=== PATIENT | female | born 1940 | race Caucasian/White ===

== ENCOUNTER 2017-05-23 12:45 | Inpatient (IN) ==
[2017-05-23] MEDS ORDERED: MORPHINE 2 MG/1 ML SYRINGE IV STA (14:19)
[2017-05-23] MEDS ORDERED: NITROGLYCERIN 2% OINT 1 INCH/GM PACK TOP STA (14:19)
[2017-05-23] MEDS ORDERED: SODIUM CHLORIDE 0.9% 500 ML IV STA (14:19)
[2017-05-23] MEDS ORDERED: ASPIRIN 325 MG TABLET PO STA (14:19)
[2017-05-23] MEDS ORDERED: ONDANSETRON 4 MG/2 ML VIAL IV STA (14:19)
[2017-05-23] MEDS ORDERED: NITROGLYCERIN 2% OINT 1 INCH/GM PACK TOP ONE (14:32)
[2017-05-23] MEDS ORDERED: ONDANSETRON 4 MG/2 ML VIAL ONE (14:32)
[2017-05-23] MEDS ORDERED: ASPIRIN 325 MG TABLET ONE (14:32)
[2017-05-23] MEDS ORDERED: MORPHINE 2 MG/1 ML SYRINGE ONE (14:32)
[2017-05-23 14:58] LABS: Basophils % 0.6 % (0.0-0.8); Eosinophils % 0.6 % (0.00-10.9); Hemoglobin 12.3 GM/DL (12.0-16.0); Immature Granulocytes % 2.7 %; Immature Granulocytes Absolute 0.14 #; Lymphocytes # 0.9 10*3/uL (1.4-4.0); Lymphocytes % 16.5 % (21.3-54.2); Mean Corpuscular HGB Conc 31.5 GM/DL (32-36); Mean Corpuscular Hemoglobin 29 PG (27-34); Mean Corpuscular Volume 91.8 FL (87-102); Monocytes # 0.2 10*3/uL (0.11-0.8); Monocytes % 4.3 % (1.7-12.7); Neutrophils # 3.9 10*3/uL (1.4-7.4); Neutrophils % 75.3 % (38.7-73.9); Platelet Count 60 T/CUMM (130-400); Red Blood Count 4.25 MC/CUMM (3.8-5.5); Red Cell Distribution Width 18.4 % (9.3-17.3); White Blood Count 5.2 T/CUMM (4-12)
[2017-05-23 15:03] LABS: INR 0.9; PT Patient Result 9.6 SECS
[2017-05-23 15:07] LABS: Albumin 3.7 G/DL (3.4-5.0); Bilirubin,Total 0.9 MG/DL (0.2-1.0); Calcium 9.9 MG/DL (8.5-10.1); Magnesium 1.8 MG/DL (1.8-2.4); Osmolality,Calculated 283.3 MOS/KG (273-304); Potassium 4.1 MMOL/L (3.5-5.1); Total Protein 8.6 G/DL (6.4-8.3)
[2017-05-23 15:16] LABS: Anisocytosis 1+; Poikilocytosis 2+
[2017-05-23] MEDS ORDERED: GLUCAGON 1 MG VIAL IM PRN (19:57)
[2017-05-23] MEDS ORDERED: NITROGLYCERIN SL 0.4 MG TABLET SL PRN (19:57)
[2017-05-23] MEDS ORDERED: MORPHINE 2 MG/1 ML SYRINGE IV PRN (19:57)
[2017-05-23] MEDS ORDERED: CETIRIZINE 10 MG TABLET PO PRN (19:57)
[2017-05-23] MEDS ORDERED: ONDANSETRON 4 MG/2 ML VIAL IV PRN (19:57)
[2017-05-23] MEDS ORDERED: ACETAMINOPHEN 500 MG TABLET PO PRN (19:57)
[2017-05-23] MEDS ORDERED: DEXTROSE 50% 25 GM/50 ML VIAL IV PRN (19:57)
[2017-05-23] MEDS: DOCUSATE SODIUM 100 MG CAPSULE PO SCH (21:44)
[2017-05-23] MEDS: PRAVASTATIN 40 MG TABLET PO SCH (21:44)
[2017-05-23] MEDS: INSULIN REGULAR 100 UNIT/ML SUBCUT SCH (21:44)
[2017-05-23] MEDS: SODIUM CHLORIDE 0.9% 1,000 ML IV SCH (21:54)
[2017-05-23] MEDS: GABAPENTIN 100 MG CAPSULE PO SCH (21:58)
[2017-05-24 05:40] LABS: Basophils % 0.6 % (0.0-0.8); Eosinophils % 0.8 % (0.00-10.9); Hematocrit 30.3 VOL% (35.7-47.0); Hemoglobin 9.3 GM/DL (12.0-16.0); Immature Granulocytes % 2.9 %; Immature Granulocytes Absolute 0.15 #; Lymphocytes # 1.7 10*3/uL (1.4-4.0); Lymphocytes % 33.9 % (21.3-54.2); Mean Corpuscular HGB Conc 30.7 GM/DL (32-36); Mean Corpuscular Hemoglobin 29 PG (27-34); Mean Corpuscular Volume 93.5 FL (87-102); Monocytes # 0.3 10*3/uL (0.11-0.8); Monocytes % 6.1 % (1.7-12.7); Neutrophils # 2.8 10*3/uL (1.4-7.4); Neutrophils % 55.7 % (38.7-73.9); Platelet Count 51 T/CUMM (130-400); Red Blood Count 3.24 MC/CUMM (3.8-5.5); Red Cell Distribution Width 18.2 % (9.3-17.3); White Blood Count 5.1 T/CUMM (4-12)
[2017-05-24 06:12] LABS: Albumin 2.8 G/DL (3.4-5.0); Bilirubin,Total 0.4 MG/DL (0.2-1.0); Calcium 8.8 MG/DL (8.5-10.1); Magnesium 2.1 MG/DL (1.8-2.4); Osmolality,Calculated 288.7 MOS/KG (273-304); Potassium 5.2 MMOL/L (3.5-5.1); Risk Ratio 3.66; Total Protein 6.2 G/DL (6.4-8.3); VLDL CHOLESTEROL 24.4 MG/DL
[2017-05-24 06:41] LABS: Hypochromasia 1+; Macrocytosis 1+; Target Cells Slight
[2017-05-24] MEDS: INSULIN REGULAR 100 UNIT/ML SUBCUT SCH ×4 (07:57→21:43)
[2017-05-24] MEDS ORDERED: NON-FORMULARY MEDICATION (Esomeprazole Magnesium [Esomeprazole] 20 MG) PO SCH (09:00)
[2017-05-24] MEDS: PANTOPRAZOLE 40 MG TABLET PO SCH (09:51)
[2017-05-24] MEDS: metFORMIN 500 MG TABLET PO SCH ×2 (09:51→16:32)
[2017-05-24] MEDS: DOCUSATE SODIUM 100 MG CAPSULE PO SCH ×2 (09:51→21:43)
[2017-05-24] MEDS: ACETAMINOPHEN 325 MG TABLET PO PRN ×2 (09:52→19:44)
[2017-05-24] MEDS: LOSARTAN 25 MG TABLET PO SCH (09:52)
[2017-05-24 11:00] LABS: Apearance,Urine CLEAR (Clear); Bilirubin,Urine Negative (Negative); Blood, Urine Negative (Negative); Glucose,Urine (UA) Negative (Negative); Ketones,Urine Negative (Negative); Nitrite,Urine Negative (Negative); Protein,Urine Negative; RBC,Urine <1 /HPF (0-4); Squamous Epithelial Cell,Urine Occasional /HPF (0-10); Urine Color Straw (Yellow); Urine Specific Gravity 1.006 (1.001-1.035); Urine Urobilinogen < 2.0 EU/DL (0.2-1.0); WBC,Urine <1 /HPF (0-6)
[2017-05-24] MEDS ORDERED: oxyCODONE IR 5 MG TABLET PO PRN (12:24)
[2017-05-24] MEDS ORDERED: OLANZapine 5 MG TABLET PO PRN (12:25)
[2017-05-24] MEDS ORDERED: methylPREDNISolone 4 MG TABLET PO SCH (12:30)
[2017-05-24] MEDS: SODIUM CHLORIDE 0.9% 1,000 ML IV SCH (13:23)
[2017-05-24] MEDS: ISOSORBIDE MONONITRATE 30 MG TABLET PO SCH (16:57)
[2017-05-24] MEDS: ASPIRIN EC 81 MG TABLET PO SCH (16:58)
[2017-05-24] MEDS: METOPROLOL TARTRATE 25 MG TABLET PO SCH (21:42)
[2017-05-24] MEDS: methylPREDNISolone 4 MG TABLET PO SCH (21:42)
[2017-05-24] MEDS: PRAVASTATIN 40 MG TABLET PO SCH (21:43)
[2017-05-24] MEDS: GABAPENTIN 100 MG CAPSULE PO SCH (21:43)
[2017-05-25 04:19] LABS: Troponin I Only 0.033 NG/ML (0.00-0.045)
[2017-05-25] MEDS: INSULIN REGULAR 100 UNIT/ML SUBCUT SCH ×4 (08:52→21:14)
[2017-05-25] MEDS: ACETAMINOPHEN 325 MG TABLET PO PRN ×2 (08:53→21:13)
[2017-05-25] MEDS: DOCUSATE SODIUM 100 MG CAPSULE PO SCH ×2 (08:53→21:14)
[2017-05-25] MEDS: metFORMIN 500 MG TABLET PO SCH ×2 (08:53→16:13)
[2017-05-25] MEDS: PANTOPRAZOLE 40 MG TABLET PO SCH (08:53)
[2017-05-25] MEDS: LOSARTAN 25 MG TABLET PO SCH (08:54)
[2017-05-25] MEDS: ISOSORBIDE MONONITRATE 30 MG TABLET PO SCH (08:54)
[2017-05-25] MEDS: METOPROLOL TARTRATE 25 MG TABLET PO SCH ×2 (08:54→21:14)
[2017-05-25] MEDS: ASPIRIN EC 81 MG TABLET PO SCH (10:46)
[2017-05-25] MEDS: GABAPENTIN 100 MG CAPSULE PO SCH (21:13)
[2017-05-25] MEDS: methylPREDNISolone 4 MG TABLET PO SCH (21:14)
[2017-05-25] MEDS: PRAVASTATIN 40 MG TABLET PO SCH (21:14)
[2017-05-26 07:32] VITALS: BP 148/67
[2017-05-26 07:46] LABS: Basophils % 0.6 % (0.0-0.8); Eosinophils % 0.4 % (0.00-10.9); Hemoglobin 9.8 GM/DL (12.0-16.0); Immature Granulocytes % 3.7 %; Immature Granulocytes Absolute 0.18 #; Lymphocytes % 19.5 % (21.3-54.2); Mean Corpuscular HGB Conc 31.6 GM/DL (32-36); Mean Corpuscular Hemoglobin 29 PG (27-34); Mean Corpuscular Volume 90.1 FL (87-102); Monocytes # 0.2 10*3/uL (0.11-0.8); Monocytes % 3.7 % (1.7-12.7); Neutrophils # 3.6 10*3/uL (1.4-7.4); Neutrophils % 72.1 % (38.7-73.9); Red Blood Count 3.44 MC/CUMM (3.8-5.5); Red Cell Distribution Width 17.9 % (9.3-17.3); White Blood Count 4.9 T/CUMM (4-12)
[2017-05-26] MEDS: INSULIN REGULAR 100 UNIT/ML SUBCUT SCH (07:48)
[2017-05-26 07:49] LABS: Platelet Count 50 T/CUMM (130-400)
[2017-05-26 08:05] LABS: Giant Platelets Few; Hypochromasia 1+; Microcytosis Slight; Ovalocytes Slight; Platelet Estimate Decreased
[2017-05-26 08:09] LABS: Calcium 8.6 MG/DL (8.5-10.1); Magnesium 1.8 MG/DL (1.8-2.4); Osmolality,Calculated 284.1 MOS/KG (273-304); Potassium 4.4 MMOL/L (3.5-5.1)
[2017-05-26] MEDS: LOSARTAN 25 MG TABLET PO SCH (08:18)
[2017-05-26] MEDS: metFORMIN 500 MG TABLET PO SCH (08:18)
[2017-05-26] MEDS: METOPROLOL TARTRATE 25 MG TABLET PO SCH (08:18)
[2017-05-26] MEDS: PANTOPRAZOLE 40 MG TABLET PO SCH (08:18)
[2017-05-26] MEDS: ISOSORBIDE MONONITRATE 30 MG TABLET PO SCH (08:19)
[2017-05-26] MEDS: DOCUSATE SODIUM 100 MG CAPSULE PO SCH (08:19)
[2017-05-26] MEDS: ACETAMINOPHEN 325 MG TABLET PO PRN (08:19)
== END 2017-05-26 10:38 | disposition home or self-care (01) | DRG 552 ==
LOC: N.ED 12:45 → N.EDINP 17:06 → N.TELEN 19:37
PROVIDERS: ADMIT Internal Medicine; ATTEND Internal Medicine

== ENCOUNTER 2018-04-06 02:43 | Inpatient (IN) ==
[2018-04-06] MEDS ORDERED: ACETAMINOPHEN 500 MG TABLET PO STA (03:21)
[2018-04-06] MEDS ORDERED: SODIUM CHLORIDE 0.9% 1,000 ML IV STA (03:21)
[2018-04-06 03:29] LABS: Basophils % 1.4 % (0.0-0.8); Eosinophils % 1.1 % (0.00-10.9); Hematocrit 39.5 VOL% (35.7-47.0); Hemoglobin 12.8 GM/DL (12.0-16.0); Immature Granulocytes % 13.6 %; Immature Granulocytes Absolute 0.38 #; Lymphocytes # 0.9 10*3/uL (1.4-4.0); Lymphocytes % 30.7 % (21.3-54.2); Mean Corpuscular HGB Conc 32.4 GM/DL (32-36); Mean Corpuscular Hemoglobin 31 PG (27-34); Mean Corpuscular Volume 94.5 FL (87-102); Monocytes # 0.1 10*3/uL (0.11-0.8); Monocytes % 3.2 % (1.7-12.7); NRBC # 0.02 10*3/uL; Neutrophils # 1.4 10*3/uL (1.4-7.4); Platelet Count 45 T/CUMM (130-400); Red Blood Count 4.18 MC/CUMM (3.8-5.5); White Blood Count 2.8 T/CUMM (4-12)
[2018-04-06 03:41] LABS: Apearance,Urine CLEAR (Clear); Bacteria,Urine Occasional /HPF (Few); Bilirubin,Urine Negative (Negative); Blood, Urine Negative (Negative); Glucose,Urine (UA) Negative (Negative); Ketones,Urine Negative (Negative); Mucus,Urine Occasional /LPF (Occasional); Nitrite,Urine Negative (Negative); Protein,Urine Negative; RBC,Urine 2 /HPF (0-4); Squamous Epithelial Cell,Urine Occasional /HPF (0-10); Urine Color Yellow (Yellow); Urine Specific Gravity 1.018 (1.001-1.035); WBC,Urine 11 /HPF (0-6)
[2018-04-06 04:55] LABS: Lactic Acid 1.7 MMOL/L (0.4-2.0)
[2018-04-06] MEDS ORDERED: CEFEPIME 1,000 MG in SODIUM CHLORIDE 0.9% 100 ML IV STA (04:55)
[2018-04-06] MEDS ORDERED: VANCOMYCIN INJ 1,000 MG in SODIUM CHLORIDE 0.9% 250 ML IV STA (04:56)
[2018-04-06 04:59] LABS: Sedimentation Rate-Westergren 42 MM/HR (0-30)
[2018-04-06] MEDS ORDERED: ALPRAZolam 0.25 MG TABLET PO PRN (05:01)
[2018-04-06] MEDS ORDERED: chlorproMAZINE INJ 50 MG in SODIUM CHLORIDE 0.9% 100 ML IV PRN (05:01)
[2018-04-06] MEDS ORDERED: chlorproMAZINE INJ 25 MG in SODIUM CHLORIDE 0.9% 100 ML IV PRN (05:01)
[2018-04-06] MEDS ORDERED: chlorproMAZINE 25 MG TABLET PO PRN (05:01)
[2018-04-06] MEDS ORDERED: LACTULOSE 20 GM/30 ML UDCUP PO PRN (05:01)
[2018-04-06] MEDS ORDERED: MYLANTA/LIDO VISC 2:1 300 ML BOTTLE SWISH/SPIT PRN (05:01)
[2018-04-06] MEDS ORDERED: LOPERAMIDE 2 MG CAPSULE PO PRN ×3 (05:01→17:29)
[2018-04-06] MEDS ORDERED: traMADol 50 MG TABLET PO PRN ×2 (05:01→17:29)
[2018-04-06] MEDS ORDERED: MYLANTA/LIDO VISC 2:1 300 ML BOTTLE SWISH/SWAL PRN (05:01)
[2018-04-06] MEDS ORDERED: MAGNESIUM HYDROXIDE SUSP 30 ML UDCUP PO PRN (05:01)
[2018-04-06] MEDS ORDERED: ALUMINUM/MAGNES/SIMETH MAX STR 30 ML UDCUP PO PRN (05:01)
[2018-04-06] MEDS ORDERED: BENZTROPINE 2 MG/2 ML AMP IV PRN (05:01)
[2018-04-06] MEDS ORDERED: diphenhydrAMINE CAP 25 MG CAPSULE PO PRN (05:01)
[2018-04-06 05:02] LABS: Alanine Aminotransferase 32 U/L (13-56); Albumin 2.7 G/DL (3.4-5.0); Alkaline Phosphatase < 10 U/L (45-117); Aspartate Amino Transferase 44 U/L (0-37); Blood Urea Nitrogen 17 MG/DL (7-18); Glucose 123 MG/DL (74-106); Osmolality,Calculated 279.5 MOS/KG (273-304); Potassium 4.9 MMOL/L (3.5-5.1); Sodium 139 MMOL/L (136-145)
[2018-04-06 05:23] LABS: Lymphocytes 39 % (20-55); Macrocytosis 1+; Platelet Estimate Decreased; Polychromasia 1+; Segmented Neutrophils 57 % (50-85); Total Cells Counted 100
[2018-04-06] MEDS: DEXTROSE 5% NACL 0.9% 1,000 ML IV SCH ×2 (06:35→18:23)
[2018-04-06] MEDS: ACETAMINOPHEN 325 MG TABLET PO PRN (10:34)
[2018-04-06] MEDS ORDERED: methylPREDNISolone SOD SUC 125 MG/2 ML VIAL ONE (11:19)
[2018-04-06] MEDS: CEFEPIME 2,000 MG in SYRINGE 1 EACH IV SCH ×2 (12:05→21:23)
[2018-04-06] MEDS: FILGRASTIM-SNDZ 300 MCG/0.5 ML SYRINGE SUBCUT SCH (14:41)
[2018-04-06] MEDS ORDERED: NITROGLYCERIN SL 0.4 MG TABLET SL PRN (17:29)
[2018-04-06] MEDS: ACETAMINOPHEN 500 MG TABLET PO PRN (18:14)
[2018-04-06] MEDS: ONDANSETRON 4 MG/2 ML VIAL IV PRN (20:46)
[2018-04-06] MEDS: SODIUM CHLORIDE 0.9% 1,000 ML IV SCH (21:20)
[2018-04-06] MEDS: metFORMIN 500 MG TABLET PO SCH (21:22)
[2018-04-06] MEDS: GABAPENTIN 100 MG CAPSULE PO SCH (21:22)
[2018-04-06] MEDS: METOPROLOL TARTRATE 25 MG TABLET PO SCH (21:22)
[2018-04-06] MEDS: PRAVASTATIN 40 MG TABLET PO SCH (21:22)
[2018-04-07] MEDS: CEFEPIME 2,000 MG in SYRINGE 1 EACH IV SCH ×3 (03:55→20:23)
[2018-04-07] MEDS ORDERED: CEFEPIME 1,000 MG in SYRINGE 1 EACH IV SCH (05:00)
[2018-04-07] MEDS: VANCOMYCIN INJ 750 MG in SODIUM CHLORIDE 0.9% 250 ML IV SCH (05:33)
[2018-04-07 05:45] LABS: Basophils % 1.1 % (0.0-0.8); Eosinophils % 1.1 % (0.00-10.9); Hematocrit 35.9 VOL% (35.7-47.0); Hemoglobin 11.4 GM/DL (12.0-16.0); Immature Granulocytes % 10.1 %; Immature Granulocytes Absolute 0.37 #; Lymphocytes # 0.9 10*3/uL (1.4-4.0); Lymphocytes % 23.5 % (21.3-54.2); Mean Corpuscular HGB Conc 31.8 GM/DL (32-36); Mean Corpuscular Hemoglobin 31 PG (27-34); Mean Corpuscular Volume 96.2 FL (87-102); Monocytes # 0.1 10*3/uL (0.11-0.8); Neutrophils # 2.2 10*3/uL (1.4-7.4); Neutrophils % 61.2 % (38.7-73.9); Red Blood Count 3.73 MC/CUMM (3.8-5.5); Red Cell Distribution Width 22.6 % (9.3-17.3); White Blood Count 3.7 T/CUMM (4-12)
[2018-04-07 05:52] LABS: Platelet Count 20 T/CUMM (130-400)
[2018-04-07 06:04] LABS: Calcium 9.1 MG/DL (8.5-10.1); Osmolality,Calculated 288.6 MOS/KG (273-304)
[2018-04-07 06:24] LABS: Band Neutrophils 9 % (0-10); Eosinophils 1 % (0-10); Lymphocytes 35 % (20-55); Myelocytes 1 %; Segmented Neutrophils 46 % (50-85); Total Cells Counted 100
[2018-04-07 06:25] LABS: Anisocytosis 1+
[2018-04-07 06:26] LABS: Macrocytosis 1+
[2018-04-07 06:27] LABS: Acanthocytes 1+; Target Cells Few
[2018-04-07 06:28] LABS: Ovalocytes Few; Platelet Estimate Decreased
[2018-04-07] MEDS ORDERED: metFORMIN 500 MG TABLET PO SCH (08:00)
[2018-04-07] MEDS: metFORMIN 500 MG TABLET PO SCH ×2 (09:46→18:21)
[2018-04-07] MEDS: CYANOCOBALAMIN 500 MCG TABLET PO SCH (09:46)
[2018-04-07] MEDS: HYDROXYUREA 500 MG CAPSULE PO SCH (09:46)
[2018-04-07] MEDS: LOSARTAN 25 MG TABLET PO SCH (09:48)
[2018-04-07] MEDS: GABAPENTIN 100 MG CAPSULE PO SCH ×2 (09:48→20:23)
[2018-04-07] MEDS: ISOSORBIDE MONONITRATE 30 MG TABLET PO SCH (09:48)
[2018-04-07] MEDS: METOPROLOL TARTRATE 25 MG TABLET PO SCH ×2 (09:48→20:23)
[2018-04-07] MEDS: FILGRASTIM-SNDZ 300 MCG/0.5 ML SYRINGE SUBCUT SCH (09:50)
[2018-04-07] MEDS: ONDANSETRON 4 MG/2 ML VIAL IV PRN (11:15)
[2018-04-07] MEDS: ACETAMINOPHEN 325 MG TABLET PO PRN (16:10)
[2018-04-07] MEDS: PRAVASTATIN 40 MG TABLET PO SCH (20:23)
[2018-04-07] MEDS: TEMAZEPAM 7.5 MG CAPSULE PO PRN (20:23)
[2018-04-07] MEDS: ACETAMINOPHEN 500 MG TABLET PO PRN (20:29)
[2018-04-08 02:16] LABS: Basophils # 0.1 10*3/uL (0.0-0.2); Eosinophils % 0.6 % (0.00-10.9); Hematocrit 30.3 VOL% (35.7-47.0); Hemoglobin 9.8 GM/DL (12.0-16.0); Immature Granulocytes % 8.6 %; Lymphocytes # 0.7 10*3/uL (1.4-4.0); Lymphocytes % 20.2 % (21.3-54.2); Mean Corpuscular HGB Conc 32.3 GM/DL (32-36); Mean Corpuscular Hemoglobin 30 PG (27-34); Mean Corpuscular Volume 92.4 FL (87-102); Monocytes # 0.1 10*3/uL (0.11-0.8); Monocytes % 3.5 % (1.7-12.7); Neutrophils # 2.3 10*3/uL (1.4-7.4); Neutrophils % 65.1 % (38.7-73.9); Red Blood Count 3.28 MC/CUMM (3.8-5.5); Red Cell Distribution Width 23.1 % (9.3-17.3); White Blood Count 3.5 T/CUMM (4-12)
[2018-04-08 02:25] LABS: Platelet Count 31 T/CUMM (130-400)
[2018-04-08 03:05] LABS: Calcium 8.1 MG/DL (8.5-10.1); Osmolality,Calculated 281.3 MOS/KG (273-304); Potassium 4.1 MMOL/L (3.5-5.1)
[2018-04-08 04:27] LABS: Anisocytosis 1+; Band Neutrophils 12 % (0-10); Lymphocytes 26 % (20-55); Macrocytosis 1+; Platelet Estimate Decreased; Reactive Lymphocytes Few; Segmented Neutrophils 51 % (50-85); Total Cells Counted 100
[2018-04-08 04:29] LABS: Atypical Lymphocytes Few; Schistocytes Few
[2018-04-08] MEDS: CEFEPIME 2,000 MG in SYRINGE 1 EACH IV SCH ×3 (04:49→20:22)
[2018-04-08] MEDS: VANCOMYCIN INJ 750 MG in SODIUM CHLORIDE 0.9% 250 ML IV SCH (04:52)
[2018-04-08] MEDS: GABAPENTIN 100 MG CAPSULE PO SCH ×2 (10:44→20:21)
[2018-04-08] MEDS: METOPROLOL TARTRATE 25 MG TABLET PO SCH ×2 (10:44→20:21)
[2018-04-08] MEDS: CYANOCOBALAMIN 500 MCG TABLET PO SCH (10:44)
[2018-04-08] MEDS: metFORMIN 500 MG TABLET PO SCH ×2 (10:45→17:31)
[2018-04-08] MEDS: ISOSORBIDE MONONITRATE 30 MG TABLET PO SCH (10:45)
[2018-04-08] MEDS: HYDROXYUREA 500 MG CAPSULE PO SCH (10:45)
[2018-04-08] MEDS: LOSARTAN 25 MG TABLET PO SCH (10:46)
[2018-04-08] MEDS: ACETAMINOPHEN 500 MG TABLET PO PRN (17:31)
[2018-04-08] MEDS: FILGRASTIM-SNDZ 300 MCG/0.5 ML SYRINGE SUBCUT SCH (17:32)
[2018-04-08] MEDS: PRAVASTATIN 40 MG TABLET PO SCH (20:22)
[2018-04-08] MEDS: SERTRALINE 25 MG TABLET PO SCH (20:22)
[2018-04-08] MEDS: TEMAZEPAM 7.5 MG CAPSULE PO PRN (20:22)
[2018-04-08] MEDS: ONDANSETRON 4 MG/2 ML VIAL IV PRN (23:40)
[2018-04-09] MEDS: PROMETHAZINE INJ 25 MG in SODIUM CHLORIDE 0.9% 50 ML IV PRN (01:42)
[2018-04-09] MEDS: CEFEPIME 2,000 MG in SYRINGE 1 EACH IV SCH ×3 (03:15→20:29)
[2018-04-09 05:38] LABS: Basophils # 0.4 10*3/uL (0.0-0.2); Basophils % 10.1 % (0.0-0.8); Hemoglobin 9.7 GM/DL (12.0-16.0); Immature Granulocytes % 10.1 %; Immature Granulocytes Absolute 0.37 #; Lymphocytes % 26.4 % (21.3-54.2); Mean Corpuscular HGB Conc 32.3 GM/DL (32-36); Mean Corpuscular Hemoglobin 30 PG (27-34); Mean Corpuscular Volume 93.8 FL (87-102); Monocytes # 0.1 10*3/uL (0.11-0.8); Monocytes % 1.6 % (1.7-12.7); Neutrophils # 1.9 10*3/uL (1.4-7.4); Neutrophils % 51.8 % (38.7-73.9); Red Cell Distribution Width 23.6 % (9.3-17.3); White Blood Count 3.7 T/CUMM (4-12)
[2018-04-09 05:41] LABS: Platelet Count 27 T/CUMM (130-400)
[2018-04-09 05:51] LABS: Calcium 8.3 MG/DL (8.5-10.1); Osmolality,Calculated 283.1 MOS/KG (273-304); Potassium 4.4 MMOL/L (3.5-5.1)
[2018-04-09] MEDS: ACETAMINOPHEN 500 MG TABLET PO PRN ×2 (05:54→15:57)
[2018-04-09 06:05] LABS: Band Neutrophils 3 % (0-10); Eosinophils 2 % (0-10); Hypochromasia 1+; Lymphocytes 25 % (20-55); Macrocytosis Slight; Ovalocytes Slight; Platelet Estimate Decreased; Segmented Neutrophils 66 % (50-85); Total Cells Counted 100
[2018-04-09 06:06] LABS: Atypical Lymphocytes Few
[2018-04-09] MEDS: VANCOMYCIN INJ 750 MG in SODIUM CHLORIDE 0.9% 250 ML IV SCH (08:52)
[2018-04-09] MEDS: GABAPENTIN 100 MG CAPSULE PO SCH ×2 (08:52→20:12)
[2018-04-09] MEDS: FILGRASTIM-SNDZ 300 MCG/0.5 ML SYRINGE SUBCUT SCH (08:52)
[2018-04-09] MEDS: ISOSORBIDE MONONITRATE 30 MG TABLET PO SCH (08:53)
[2018-04-09] MEDS: LOSARTAN 25 MG TABLET PO SCH (08:53)
[2018-04-09] MEDS: METOPROLOL TARTRATE 25 MG TABLET PO SCH ×2 (08:53→20:29)
[2018-04-09] MEDS: HYDROXYUREA 500 MG CAPSULE PO SCH (08:53)
[2018-04-09] MEDS: metFORMIN 500 MG TABLET PO SCH ×2 (08:53→19:40)
[2018-04-09] MEDS: CYANOCOBALAMIN 500 MCG TABLET PO SCH (08:53)
[2018-04-09] MEDS: NYSTATIN 500,000 UNIT/5 ML UDCUP SWISH/SWAL SCH ×4 (08:55→20:12)
[2018-04-09] MEDS: metroNIDAZOLE 500 MG TABLET PO SCH ×2 (13:10→19:40)
[2018-04-09] MEDS: SODIUM CHLORIDE 0.9% 1,000 ML IV SCH (13:17)
[2018-04-09] MEDS: ONDANSETRON 4 MG/2 ML VIAL IV PRN (14:22)
[2018-04-09] MEDS: SERTRALINE 25 MG TABLET PO SCH (20:29)
[2018-04-09] MEDS: PRAVASTATIN 40 MG TABLET PO SCH (20:29)
[2018-04-09 22:32] LABS: Lactic Acid 4.8 MMOL/L (0.4-2.0)
[2018-04-10] MEDS: metroNIDAZOLE 500 MG TABLET PO SCH ×4 (00:59→20:02)
[2018-04-10 01:30] LABS: Basophils # 0.1 10*3/uL (0.0-0.2); Eosinophils % 0.3 % (0.00-10.9); Hematocrit 28.8 VOL% (35.7-47.0); Hemoglobin 9.1 GM/DL (12.0-16.0); Immature Granulocytes % 10.1 %; Lymphocytes # 0.5 10*3/uL (1.4-4.0); Lymphocytes % 16.2 % (21.3-54.2); Mean Corpuscular HGB Conc 31.6 GM/DL (32-36); Mean Corpuscular Hemoglobin 30 PG (27-34); Mean Corpuscular Volume 94.1 FL (87-102); Monocytes # 0.1 10*3/uL (0.11-0.8); Monocytes % 2.7 % (1.7-12.7); Neutrophils % 68.7 % (38.7-73.9); Red Blood Count 3.06 MC/CUMM (3.8-5.5); Red Cell Distribution Width 23.8 % (9.3-17.3)
[2018-04-10 01:37] LABS: Platelet Count 16 T/CUMM (130-400)
[2018-04-10 01:48] LABS: Bilirubin,Total 1.1 MG/DL (0.2-1.0); Osmolality,Calculated 283.1 MOS/KG (273-304); Potassium 3.7 MMOL/L (3.5-5.1); Total Protein 6.1 G/DL (6.4-8.3)
[2018-04-10 01:49] LABS: Lactic Acid 3.6 MMOL/L (0.4-2.0)
[2018-04-10 03:07] LABS: Band Neutrophils 8 % (0-10); Lymphocytes 10 % (20-55); Macrocytosis 1+; Platelet Estimate Decreased; Polychromasia 1+; Segmented Neutrophils 74 % (50-85); Total Cells Counted 100
[2018-04-10] MEDS: CEFEPIME 2,000 MG in SYRINGE 1 EACH IV SCH ×3 (04:13→20:39)
[2018-04-10] MEDS: FILGRASTIM-SNDZ 300 MCG/0.5 ML SYRINGE SUBCUT SCH (08:37)
[2018-04-10] MEDS: HYDROXYUREA 500 MG CAPSULE PO SCH (08:38)
[2018-04-10] MEDS: ISOSORBIDE MONONITRATE 30 MG TABLET PO SCH (08:38)
[2018-04-10] MEDS: NYSTATIN 500,000 UNIT/5 ML UDCUP SWISH/SWAL SCH ×4 (08:38→20:40)
[2018-04-10] MEDS: metFORMIN 500 MG TABLET PO SCH ×2 (08:42→20:01)
[2018-04-10] MEDS: GABAPENTIN 100 MG CAPSULE PO SCH ×2 (08:42→20:40)
[2018-04-10] MEDS: VANCOMYCIN INJ 750 MG in SODIUM CHLORIDE 0.9% 250 ML IV SCH (08:42)
[2018-04-10] MEDS: METOPROLOL TARTRATE 25 MG TABLET PO SCH ×2 (08:42→20:39)
[2018-04-10] MEDS: LOSARTAN 25 MG TABLET PO SCH (08:42)
[2018-04-10] MEDS: CYANOCOBALAMIN 500 MCG TABLET PO SCH (09:00)
[2018-04-10] MEDS: SODIUM CHLORIDE 0.9% 1,000 ML IV SCH ×3 (11:54→23:37)
[2018-04-10] MEDS: VANCOMYCIN INJ 1,000 MG in SODIUM CHLORIDE 0.9% 250 ML IV SCH ×2 (12:10→23:57)
[2018-04-10] MEDS: ONDANSETRON 4 MG/2 ML VIAL IV PRN (14:20)
[2018-04-10] MEDS: PROMETHAZINE INJ 25 MG in SODIUM CHLORIDE 0.9% 50 ML IV PRN (19:48)
[2018-04-10] MEDS: SERTRALINE 25 MG TABLET PO SCH (20:39)
[2018-04-10] MEDS: PRAVASTATIN 40 MG TABLET PO SCH (20:39)
[2018-04-11] MEDS: metroNIDAZOLE 500 MG TABLET PO SCH ×4 (00:28→18:48)
[2018-04-11 03:32] LABS: Calcium 7.9 MG/DL (8.5-10.1); Osmolality,Calculated 281.3 MOS/KG (273-304); Potassium 4.1 MMOL/L (3.5-5.1)
[2018-04-11] MEDS: CEFEPIME 2,000 MG in SYRINGE 1 EACH IV SCH ×3 (04:18→21:27)
[2018-04-11 04:43] LABS: Basophils # 0.1 10*3/uL (0.0-0.2); Basophils % 1.5 % (0.0-0.8); Eosinophils # 0.1 10*3/uL (0.0-0.87); Eosinophils % 1.2 % (0.00-10.9); Hematocrit 31.7 VOL% (35.7-47.0); Hemoglobin 10.2 GM/DL (12.0-16.0); Immature Granulocytes Absolute 0.98 #; Lymphocytes # 0.8 10*3/uL (1.4-4.0); Lymphocytes % 18.9 % (21.3-54.2); Mean Corpuscular HGB Conc 32.2 GM/DL (32-36); Mean Corpuscular Hemoglobin 30 PG (27-34); Mean Corpuscular Volume 94.6 FL (87-102); Monocytes # 0.1 10*3/uL (0.11-0.8); Monocytes % 2.2 % (1.7-12.7); NRBC # 0.03 10*3/uL; Neutrophils # 2.1 10*3/uL (1.4-7.4); Neutrophils % 52.2 % (38.7-73.9); Red Blood Count 3.35 MC/CUMM (3.8-5.5); White Blood Count 4.1 T/CUMM (4-12)
[2018-04-11] MEDS: PROMETHAZINE INJ 25 MG in SODIUM CHLORIDE 0.9% 50 ML IV PRN (04:45)
[2018-04-11 04:57] LABS: Platelet Count 32 T/CUMM (130-400)
[2018-04-11 05:39] LABS: Band Neutrophils 11 % (0-10); Eosinophils 2 % (0-10); Lymphocytes 24 % (20-55); Metamyelocytes 7 %; Myelocytes 3 %; Platelet Estimate Decreased; Segmented Neutrophils 50 % (50-85); Total Cells Counted 100
[2018-04-11 05:40] LABS: Anisocytosis 2+; Macrocytosis 2+; Ovalocytes 1+
[2018-04-11] MEDS: SODIUM CHLORIDE 0.9% 1,000 ML IV SCH (06:58)
[2018-04-11] MEDS: metFORMIN 500 MG TABLET PO SCH ×2 (08:36→18:47)
[2018-04-11] MEDS: FILGRASTIM-SNDZ 300 MCG/0.5 ML SYRINGE SUBCUT SCH (08:36)
[2018-04-11] MEDS: NYSTATIN 500,000 UNIT/5 ML UDCUP SWISH/SWAL SCH ×4 (08:36→21:23)
[2018-04-11] MEDS: CYANOCOBALAMIN 500 MCG TABLET PO SCH (08:36)
[2018-04-11] MEDS: ISOSORBIDE MONONITRATE 30 MG TABLET PO SCH (08:36)
[2018-04-11] MEDS: LOSARTAN 25 MG TABLET PO SCH (08:37)
[2018-04-11] MEDS: METOPROLOL TARTRATE 25 MG TABLET PO SCH ×2 (08:37→21:21)
[2018-04-11] MEDS: GABAPENTIN 100 MG CAPSULE PO SCH ×2 (08:37→21:22)
[2018-04-11 09:24] LABS: Albumin 1.7 G/DL (3.4-5.0); Bilirubin,Total 0.9 MG/DL (0.2-1.0); Calcium 8.2 MG/DL (8.5-10.1); Osmolality,Calculated 283.3 MOS/KG (273-304); Potassium 3.8 MMOL/L (3.5-5.1); Total Protein 6.1 G/DL (6.4-8.3)
[2018-04-11] MEDS: VANCOMYCIN INJ 1,000 MG in SODIUM CHLORIDE 0.9% 250 ML IV SCH (10:41)
[2018-04-11] MEDS: ZINC OXIDE PASTE 113 GM TUBE TOP SCH ×2 (19:28→23:47)
[2018-04-11] MEDS: TEMAZEPAM 7.5 MG CAPSULE PO PRN (21:20)
[2018-04-11] MEDS: SERTRALINE 25 MG TABLET PO SCH (21:22)
[2018-04-11] MEDS: PRAVASTATIN 40 MG TABLET PO SCH (21:22)
[2018-04-12] MEDS: VANCOMYCIN INJ 1,000 MG in SODIUM CHLORIDE 0.9% 250 ML IV SCH ×2 (00:12→18:55)
[2018-04-12] MEDS: metroNIDAZOLE 500 MG TABLET PO SCH ×4 (00:14→21:23)
[2018-04-12] MEDS: CEFEPIME 2,000 MG in SYRINGE 1 EACH IV SCH ×3 (04:17→21:36)
[2018-04-12 04:51] LABS: Basophils # 0.1 10*3/uL (0.0-0.2); Basophils % 1.3 % (0.0-0.8); Eosinophils % 0.2 % (0.00-10.9); Hematocrit 27.7 VOL% (35.7-47.0); Hemoglobin 8.8 GM/DL (12.0-16.0); Immature Granulocytes % 12.7 %; Immature Granulocytes Absolute 0.69 #; Lymphocytes # 0.8 10*3/uL (1.4-4.0); Lymphocytes % 14.7 % (21.3-54.2); Mean Corpuscular HGB Conc 31.8 GM/DL (32-36); Mean Corpuscular Hemoglobin 30 PG (27-34); Monocytes # 0.1 10*3/uL (0.11-0.8); Monocytes % 1.8 % (1.7-12.7); Neutrophils # 3.8 10*3/uL (1.4-7.4); Neutrophils % 69.3 % (38.7-73.9); Red Blood Count 2.98 MC/CUMM (3.8-5.5); Red Cell Distribution Width 24.4 % (9.3-17.3); White Blood Count 5.4 T/CUMM (4-12)
[2018-04-12 04:58] LABS: Platelet Count 10 T/CUMM (130-400)
[2018-04-12 05:29] LABS: Albumin 1.6 G/DL (3.4-5.0); Bilirubin,Total 1.4 MG/DL (0.2-1.0); Calcium 8.1 MG/DL (8.5-10.1); Osmolality,Calculated 286.8 MOS/KG (273-304); Potassium 3.4 MMOL/L (3.5-5.1); Total Protein 5.9 G/DL (6.4-8.3)
[2018-04-12] MEDS ORDERED: SODIUM CHLORIDE 0.9% 1,000 ML IV PRN ×2 (05:29→11:52)
[2018-04-12 06:02] LABS: Band Neutrophils 3 % (0-10); Eosinophils 1 % (0-10); Lymphocytes 19 % (20-55); Myelocytes 1 %; Segmented Neutrophils 72 % (50-85); Total Cells Counted 100
[2018-04-12 06:03] LABS: Platelet Estimate Decreased
[2018-04-12 06:04] LABS: Hypochromasia 1+; Ovalocytes 2+
[2018-04-12 06:05] LABS: Burr Cells 2+; Polychromasia Few
[2018-04-12] MEDS: FILGRASTIM-SNDZ 300 MCG/0.5 ML SYRINGE SUBCUT SCH (09:29)
[2018-04-12] MEDS: CYANOCOBALAMIN 500 MCG TABLET PO SCH (09:29)
[2018-04-12] MEDS: guaiFENesin 200 MG/10 ML UDCUP PO PRN (09:29)
[2018-04-12] MEDS: GABAPENTIN 100 MG CAPSULE PO SCH ×2 (09:30→21:24)
[2018-04-12] MEDS: ISOSORBIDE MONONITRATE 30 MG TABLET PO SCH (09:31)
[2018-04-12] MEDS: metFORMIN 500 MG TABLET PO SCH ×2 (09:31→18:56)
[2018-04-12] MEDS: LOSARTAN 25 MG TABLET PO SCH (09:31)
[2018-04-12] MEDS: METOPROLOL TARTRATE 25 MG TABLET PO SCH ×2 (09:31→21:25)
[2018-04-12] MEDS: ZINC OXIDE PASTE 113 GM TUBE TOP SCH ×2 (09:31→21:41)
[2018-04-12] MEDS: NYSTATIN 500,000 UNIT/5 ML UDCUP SWISH/SWAL SCH ×3 (09:32→21:48)
[2018-04-12] MEDS: PROMETHAZINE INJ 25 MG in SODIUM CHLORIDE 0.9% 50 ML IV PRN (09:37)
[2018-04-12] MEDS ORDERED: FUROSEMIDE 20 MG/2 ML VIAL IV ONE ×2 (12:19→19:01)
[2018-04-12] MEDS: ALBUTEROL/IPRATROPIUM 3 ML NEB RESP TX SCH ×4 (13:30→23:08)
[2018-04-12] MEDS: SODIUM CHLORIDE 0.9% 1,000 ML IV SCH ×3 (21:20→21:22)
[2018-04-12] MEDS: PRAVASTATIN 40 MG TABLET PO SCH (21:25)
[2018-04-12] MEDS: SERTRALINE 25 MG TABLET PO SCH (21:32)
[2018-04-13] MEDS: metroNIDAZOLE 500 MG TABLET PO SCH ×4 (01:47→17:00)
[2018-04-13] MEDS: VANCOMYCIN INJ 1,000 MG in SODIUM CHLORIDE 0.9% 250 ML IV SCH ×3 (02:23→23:00)
[2018-04-13] MEDS: ALBUTEROL/IPRATROPIUM 3 ML NEB RESP TX SCH ×6 (02:37→23:57)
[2018-04-13] MEDS: CEFEPIME 2,000 MG in SYRINGE 1 EACH IV SCH ×3 (04:11→22:04)
[2018-04-13 05:02] LABS: Basophils % 0.6 % (0.0-0.8); Eosinophils % 0.1 % (0.00-10.9); Hematocrit 34.6 VOL% (35.7-47.0); Immature Granulocytes % 11.5 %; Immature Granulocytes Absolute 0.82 #; Lymphocytes # 0.9 10*3/uL (1.4-4.0); Lymphocytes % 12.3 % (21.3-54.2); Mean Corpuscular HGB Conc 34.4 GM/DL (32-36); Mean Corpuscular Hemoglobin 30 PG (27-34); Mean Corpuscular Volume 86.1 FL (87-102); Monocytes # 0.1 10*3/uL (0.11-0.8); Monocytes % 1.7 % (1.7-12.7); NRBC # 0.04 10*3/uL; Neutrophils # 5.3 10*3/uL (1.4-7.4); Neutrophils % 73.8 % (38.7-73.9); Red Cell Distribution Width 21.6 % (9.3-17.3)
[2018-04-13 05:10] LABS: Hemoglobin 11.9 GM/DL (12.0-16.0); Red Blood Count 4.02 MC/CUMM (3.8-5.5); White Blood Count 7.1 T/CUMM (4-12)
[2018-04-13 05:11] LABS: Platelet Count 41 T/CUMM (130-400)
[2018-04-13 05:42] LABS: Albumin 1.9 G/DL (3.4-5.0); Bilirubin,Total 1.7 MG/DL (0.2-1.0); Calcium 8.8 MG/DL (8.5-10.1); Potassium 2.7 MMOL/L (3.5-5.1); Total Protein 6.4 G/DL (6.4-8.3)
[2018-04-13 06:18] LABS: Band Neutrophils 24 % (0-10); Lymphocytes 11 % (20-55); Metamyelocytes 5 %; Myelocytes 2 %; Nucleated Red Blood Cells 1 (0-5); Platelet Estimate Decreased; Segmented Neutrophils 56 % (50-85); Total Cells Counted 100
[2018-04-13 06:19] LABS: Acanthocytes 2+; Anisocytosis 2+; Macrocytosis 2+; Ovalocytes 1+; Polychromasia Few
[2018-04-13] MEDS: METOPROLOL TARTRATE 25 MG TABLET PO SCH ×2 (09:00→22:03)
[2018-04-13] MEDS: GABAPENTIN 100 MG CAPSULE PO SCH ×2 (09:00→22:02)
[2018-04-13] MEDS: ISOSORBIDE MONONITRATE 30 MG TABLET PO SCH (09:00)
[2018-04-13] MEDS: LOSARTAN 25 MG TABLET PO SCH (09:00)
[2018-04-13] MEDS: metFORMIN 500 MG TABLET PO SCH ×2 (09:01→16:51)
[2018-04-13] MEDS: CYANOCOBALAMIN 500 MCG TABLET PO SCH (09:01)
[2018-04-13] MEDS: NYSTATIN 500,000 UNIT/5 ML UDCUP SWISH/SWAL SCH ×4 (09:18→22:16)
[2018-04-13] MEDS: POTASSIUM CHLORIDE RIDER 10 MEQ in PREMIX 1 EACH IV SCH ×2 (11:16→14:43)
[2018-04-13] MEDS: FILGRASTIM-SNDZ 300 MCG/0.5 ML SYRINGE SUBCUT SCH (14:23)
[2018-04-13] MEDS: DEXT 5% NACL 0.45% KCL 40 MEQ 40 MEQ/1,000 ML BAG IV SCH (14:26)
[2018-04-13] MEDS: guaiFENesin 200 MG/10 ML UDCUP PO PRN ×2 (14:39→22:00)
[2018-04-13] MEDS: ZINC OXIDE PASTE 113 GM TUBE TOP SCH ×2 (14:41→22:04)
[2018-04-13] MEDS: PROMETHAZINE INJ 25 MG in SODIUM CHLORIDE 0.9% 50 ML IV PRN (16:48)
[2018-04-13 16:50] LABS: Calcium 7.9 MG/DL (8.5-10.1); Potassium 2.8 MMOL/L (3.5-5.1)
[2018-04-13] MEDS: PRAVASTATIN 40 MG TABLET PO SCH (22:03)
[2018-04-13] MEDS: SERTRALINE 25 MG TABLET PO SCH (22:03)
[2018-04-14] MEDS: metroNIDAZOLE 500 MG TABLET PO SCH ×2 (00:09→05:48)
[2018-04-14] MEDS: ALBUTEROL/IPRATROPIUM 3 ML NEB RESP TX SCH ×6 (03:50→23:00)
[2018-04-14] MEDS: CEFEPIME 2,000 MG in SYRINGE 1 EACH IV SCH (03:56)
[2018-04-14 05:35] LABS: Albumin 1.8 G/DL (3.4-5.0); Bilirubin,Total 1.7 MG/DL (0.2-1.0); Calcium 8.4 MG/DL (8.5-10.1); Osmolality,Calculated 290.8 MOS/KG (273-304); Potassium 3.1 MMOL/L (3.5-5.1); Total Protein 6.5 G/DL (6.4-8.3)
[2018-04-14] MEDS: guaiFENesin 200 MG/10 ML UDCUP PO PRN (05:48)
[2018-04-14] MEDS: metFORMIN 500 MG TABLET PO SCH (08:05)
[2018-04-14] MEDS ORDERED: ALPRAZolam 0.25 MG TABLET SL PRN (08:20)
[2018-04-14] MEDS: NYSTATIN 500,000 UNIT/5 ML UDCUP SWISH/SWAL SCH ×4 (10:00→20:43)
[2018-04-14] MEDS: FILGRASTIM-SNDZ 300 MCG/0.5 ML SYRINGE SUBCUT SCH (10:00)
[2018-04-14] MEDS: LOSARTAN 25 MG TABLET PO SCH (10:11)
[2018-04-14] MEDS: ISOSORBIDE MONONITRATE 30 MG TABLET PO SCH (10:11)
[2018-04-14] MEDS: GABAPENTIN 100 MG CAPSULE PO SCH ×2 (10:12→20:44)
[2018-04-14] MEDS: CYANOCOBALAMIN 500 MCG TABLET PO SCH (10:12)
[2018-04-14] MEDS: METOPROLOL TARTRATE 25 MG TABLET PO SCH ×2 (10:12→20:43)
[2018-04-14] MEDS: DEXT 5% NACL 0.45% KCL 40 MEQ 40 MEQ/1,000 ML BAG IV SCH (11:42)
[2018-04-14] MEDS: MORPHINE 10 MG/1 ML VIAL IV PRN (14:34)
[2018-04-14] MEDS: ZINC OXIDE PASTE 113 GM TUBE TOP SCH (14:40)
[2018-04-14] MEDS ORDERED: ACETAMINOPHEN 650 MG SUPP RECTAL PRN (16:05)
[2018-04-14] MEDS ORDERED: cloNIDine 0.1 MG/24 HR PATCH TRANSDERM SCH (16:30)
[2018-04-14] MEDS: SERTRALINE 25 MG TABLET PO SCH (20:43)
[2018-04-15] MEDS: ALBUTEROL/IPRATROPIUM 3 ML NEB RESP TX SCH ×6 (03:00→23:00)
[2018-04-15] MEDS: MORPHINE 10 MG/1 ML VIAL IV PRN ×2 (03:43→16:30)
[2018-04-15] MEDS: ZINC OXIDE PASTE 113 GM TUBE TOP SCH ×3 (03:49→22:04)
[2018-04-15 08:19] VITALS: BP 145/60
[2018-04-15] MEDS ORDERED: NALOXONE 0.4 MG/ML VIAL IV PRN (08:45)
[2018-04-15] MEDS: FLUCONAZOLE INJ 100 MG in IV BAG 1 EACH IV SCH (09:28)
[2018-04-15] MEDS: MORPHINE PCA 30 MG/30 ML SYRINGE IV SCH (11:04)
[2018-04-15] MEDS: LORazepam 2 MG/1 ML VIAL IV PRN ×2 (11:25→16:29)
[2018-04-15] MEDS: LOSARTAN 25 MG TABLET PO SCH (14:42)
[2018-04-15] MEDS: METOPROLOL TARTRATE 25 MG TABLET PO SCH ×2 (14:44→22:04)
[2018-04-15] MEDS: ISOSORBIDE MONONITRATE 30 MG TABLET PO SCH (14:44)
[2018-04-15] MEDS: NYSTATIN 500,000 UNIT/5 ML UDCUP SWISH/SWAL SCH ×3 (14:45→22:04)
[2018-04-15] MEDS: CYANOCOBALAMIN 500 MCG TABLET PO SCH (14:45)
[2018-04-15] MEDS: FILGRASTIM-SNDZ 300 MCG/0.5 ML SYRINGE SUBCUT SCH (14:45)
[2018-04-15] MEDS: GABAPENTIN 100 MG CAPSULE PO SCH ×2 (14:45→22:04)
[2018-04-15] MEDS: SERTRALINE 25 MG TABLET PO SCH (22:04)
[2018-04-16] MEDS: ALBUTEROL/IPRATROPIUM 3 ML NEB RESP TX SCH ×5 (03:00→19:34)
[2018-04-16] MEDS: LOSARTAN 25 MG TABLET PO SCH (14:21)
[2018-04-16] MEDS: METOPROLOL TARTRATE 25 MG TABLET PO SCH (14:22)
[2018-04-16] MEDS: ISOSORBIDE MONONITRATE 30 MG TABLET PO SCH (14:22)
[2018-04-16] MEDS: FLUCONAZOLE INJ 100 MG in IV BAG 1 EACH IV SCH (14:22)
[2018-04-16] MEDS: NYSTATIN 500,000 UNIT/5 ML UDCUP SWISH/SWAL SCH ×2 (14:22→18:59)
[2018-04-16] MEDS: ZINC OXIDE PASTE 113 GM TUBE TOP SCH (14:22)
[2018-04-16] MEDS: FILGRASTIM-SNDZ 300 MCG/0.5 ML SYRINGE SUBCUT SCH (14:23)
[2018-04-16] MEDS: GABAPENTIN 100 MG CAPSULE PO SCH (14:23)
[2018-04-16] MEDS: CYANOCOBALAMIN 500 MCG TABLET PO SCH (14:23)
[2018-04-16] MEDS: MORPHINE PCA 30 MG/30 ML SYRINGE IV SCH (16:50)
== END 2018-04-16 19:53 | disposition expired | DRG 809 ==
LOC: N.ED 02:43 → N.EDINP 02:43 → N.4E 05:43 → N.CC 04-09 18:34 → N.4E 04-11 12:45
PROVIDERS: ADMIT Internal Medicine; ATTEND Internal Medicine